=== PATIENT | female | born 1980 | race Caucasian/White ===

== ENCOUNTER 2018-07-30 20:32 | Emergency (ER) | payer OTHER ==
[2018-07-30] MEDS ORDERED: Morphine 4 MG/ML VIAL ONE ×2 (21:14→22:31)
[2018-07-30] MEDS ORDERED: Ondansetron PF 4 MG/2 ML Vial ONE ×2 (21:14→22:31)
[2018-07-30 21:17] LABS: #Eosinphils 0.1 thou/uL (0.0-0.7); #Lymphocytes 1.7 thou/uL (1.20-3.40); #Monocytes 0.4 thou/uL (0.11-0.59); #Neutrophils 3.8 thou/uL (1.40-6.50); %Basophils 0.6 % (0.0-1.0); %Eosinophils 2.2 % (0.0-10.0); %Lymphocytes 27.6 % (21.0-51.0); %Monocytes 6.9 % (0.0-10.0); %Neutrophils 62.6 % (42.0-75.0); Hemoglobin 13.5 g/dL (12.0-16.0); Mean Corpuscular HGB CONC 34.8 g/dL (32.0-36.0); Mean Corpuscular Volume 94.7 fL (78.0-98.0); Mean Platelet Volume 8.6 fL (7.4-10.4); Platelet Count 148 thou/uL (130-400); RBC Distribution Width 11.5 % (11.5-14.5); White Blood Cell (WBC) Count 6.1 thou/uL (4.8-10.8)
[2018-07-30 21:26] LABS: INR-International Normal Ratio 1.1; PTT 30.6 SEC (22.9-36.1); Prothrombin Time 13.9 SEC (12.0-14.7)
[2018-07-30 21:44] LABS: ALT (SGPT) 12 U/L (8-55); AST (SGOT) 17 U/L (5-34); Albumin 4.7 g/dL (3.5-5.0); Alkaline Phosphatase 75 U/L (40-150); Anion Gap 13 mmol/L (10-20); BUN (Urea Nitrogen) 11 mg/dL (7.0-18.7); Bilirubin, Total 0.4 mg/dL (0.2-1.2); Calc. Creatinine Clearance 0 mL/min (70-130); Calcium 9.6 mg/dL (7.8-10.44); Carbon Dioxide 24 mmol/L (22-29); Chloride 105 mmol/L (98-107); Estimated GFR-MDRD 85; Globulin 2.9 g/dL (2.4-3.5); Glucose 94 mg/dL (70-105); Potassium 3.5 mmol/L (3.5-5.1); Protein, Total 7.6 g/dL (6.0-8.3); Sodium 138 mmol/L (136-145)
[2018-07-30 21:46] LABS: Fibrinogen 341 mg/dL (253-463)
[2018-07-30 21:54] LABS: D-Dimer Test Less than 0.27 *mcg/mL (0.27-0.43)
[2018-07-30 23:03] LABS: Bilirubin Negative (Negative); Blood, Urine Negative (Negative); Clarity CLOUDY (Clear); Glucose, Urine (Dipstick) Negative (Negative); Leukocyte Negative (Negative); Nitrite Negative (Negative); Protein, Urine (Dipstick) Negative (Neg-Trace); Specific Gravity, Urine 1.007 (1.002-1.036); Urobilinogen 0.2 mg/dL (0.2-1.0)
[2018-07-31] MEDS ORDERED: Metoclopramide HCl 10 MG/2 ML VIAL ONE (00:13)
[2018-07-31] MEDS ORDERED: Ondansetron PF 4 MG/2 ML Vial ONE (00:13)
[2018-07-31] MEDS ORDERED: HYDROmorphone 0.5 MG/0.5 ML SYRINGE ONE ×2 (00:14→00:17)
[2018-07-31] MEDS ORDERED: Crotalidae Polyvlnt Antivenin 4 GM in Sodium Chloride 0.9% 250 ML 250 ML IVPB SCH (01:00)
[2018-07-31] MEDS ORDERED: Adacel (T-DAP) 0.5 ML SYRINGE ONE (01:59)
[2018-07-31] MEDS ORDERED: methylPREDNISolone Sod Succ/PF 125 MG/2 ML VIAL ONE (02:23)
[2018-07-31] MEDS ORDERED: diphenhydrAMINE 50 MG/ML VIAL ONE (02:23)
[2018-07-31] MEDS ORDERED: Famotidine/PF 20 mg/2ml Vial ONE (02:23)
== END 2018-07-31 02:43 | disposition short-term general hospital (02) ==
LOC: ERS 20:32
DX: T63.001A Toxic effect of unspecified snake venom, accidental (unintentional), initial encounter (principal)
CPT/HCPCS: 36415; 80053; 81003; 82550; 85025; 85379; 85384; 85610; 86850; 86900; 86901; 90471; 90715; 93005; 96361; 96365; 96375; 96376; J0840; J1170; J1200; J2270; J2405; J2765; J2930; J7050; S0028